=== PATIENT | female | born 1975 | race Caucasian/White ===

== ENCOUNTER 2021-05-08 19:33 | Emergency (ER) | payer BC, OTHER ==
[~2021-05-08] VITALS: Ht 162.6 cm; Wt 104.5 kg
--- NOTE | 2021-05-08 19:55 | PHYS DOC ---
General Adult EDM: Chief Complaint: SHORTNESS OF BREATH HPI: HPI: Patient is a 45-year-old female who presents to the emergency department for shortness of breath, chest tightness with coughing, fevers, sore irritated throat and a non-productive cough. Patient is Covid positive and was diagnosed 6 days ago. She also has a history of asthma. Patient denies any nausea, vomiting (DINA ROCKWELL APRN) Review of Systems: Review of Systems: Constitutional: See HPI HENT: See HPI Respiratory: See HPI Cardiovascular: See HPI GI: See HPI (DINA ROCKWELL APRN) Current Medications: Current Meds: Current Medications Medications (Trade) Dose Ordered Sig/Suresh Start Time Stop Time Status Last Admin Dose Admin Albuterol/ Ipratropium (Duoneb) 3 ml 1X ONCE 05/08/21 20:00 05/08/21 20:01 UNV Dexamethasone Sodium Phosphate (Decadron) 10 mg 1X ONCE 05/08/21 20:00 05/08/21 20:01 UNV Sodium Chloride 1,000 ml @ 1,000 mls/hr 1X ONCE 05/08/21 20:00 05/08/21 20:59 UNV (DINA ROCKWELL APRN) Physical Exam: PE: Constitutional: Well developed, well nourished, no acute distress, non-toxic appearance. [] HENT: Normocephalic, atraumatic, bilateral external ears normal, oropharynx moist, no oral exudates, nose normal. [] Eyes: PERRL, EOMI, conjunctiva normal, no discharge. [] Neck: Normal range of motion, no stridor Cardiovascular:Heart rate regular rhythm, no murmur [] Lungs & Thorax: Bilateral breath sounds clear in upper lobes, diminished lower lobes with crackles on l lower lobe Abdomen: Bowel sounds normal, soft, no tenderness, no masses, no pulsatile masses. [] Skin: Warm, dry, no erythema, no rash. [] Back: Normal ROM Extremities: No tenderness, no cyanosis, no clubbing, ROM intact, no edema. [] Neurologic: Alert and oriented X 3, normal motor function, normal sensory function, no focal deficits noted. [] Psychologic: Affect normal, judgement normal, mood normal. [] (DINA ROCKWELL APRN) Current Patient Data: Labs: Laboratory Tests Test 11/28/21 20:15 White Blood Count 4.0 x10^3/uL Red Blood Count 3.78 x10^6/uL Hemoglobin 12.2 g/dL Hematocrit 35.4 % Mean Corpuscular Volume 93 fL Mean Corpuscular Hemoglobin 32 pg Mean Corpuscular Hemoglobin Concent 34 g/dL Red Cell Distribution Width 13.3 % Platelet Count 84 x10^3/uL Neutrophils (%) (Auto) 75 % Lymphocytes (%) (Auto) 17 % Monocytes (%) (Auto) 7 % Eosinophils (%) (Auto) 0 % Basophils (%) (Auto) 0 % Neutrophils # (Auto) 3.0 x10^3uL Lymphocytes # (Auto) 0.7 x10^3/uL Monocytes # (Auto) 0.3 x10^3/uL Eosinophils # (Auto) 0.0 x10^3/uL Basophils # (Auto) 0.0 x10^3/uL Sodium Level 138 mmol/L Potassium Level 4.0 mmol/L Chloride Level 101 mmol/L Carbon Dioxide Level 25 mmol/L Anion Gap 12 Blood Urea Nitrogen 9 mg/dL Creatinine 0.9 mg/dL Estimated GFR (Cockcroft-Gault) 67.7 BUN/Creatinine Ratio 10 Glucose Level 116 mg/dL Calcium Level 8.2 mg/dL Total Bilirubin 0.3 mg/dL Aspartate Amino Transf (AST/SGOT) 33 U/L Alanine Aminotransferase (ALT/SGPT) 28 U/L Alkaline Phosphatase 70 U/L Troponin I High Sensitivity 20 ng/L Total Protein 6.3 g/dL Albumin 3.3 g/dL Albumin/Globulin Ratio 1.1 Current Medications Medications (Trade) Dose Ordered Sig/Suresh Route PRN Reason Start Time Stop Time Status Last Admin Dose Admin Sodium Chloride 1,000 ml @ 1,000 mls/hr 1X ONCE IV 05/08/21 20:30 05/08/21 21:29 05/08/21 20:20 Albuterol/ Ipratropium (Duoneb) 3 ml 1X ONCE NEB 05/08/21 20:30 05/08/21 20:31 DC 05/08/21 20:40 Dexamethasone Sodium Phosphate (Decadron) 10 mg 1X ONCE IVP 05/08/21 20:00 05/08/21 19:51 DC Acetaminophen (Tylenol) 1,000 mg 1X ONCE PO 05/08/21 20:30 05/08/21 20:31 DC 05/08/21 20:23 Dexamethasone Sodium Phosphate (Decadron) 10 mg STK-MED ONCE .ROUTE 05/08/21 20:09 05/08/21 20:09 DC (DINA ROCKWELL APRN) EKG: EKG: EKG performed by ER staff at 2057 shows sinus tachycardia with a heart rate of 129, QTC of 421, no STEMI read by Dr. Atkins. [] (DINA ROCKWELL APRN) Radiology/Procedures: Radiology/Procedures: []PROCEDURE: PORTABLE CHEST 1V XR CHEST 1V 05/08/2021 8:00 PM INDICATION: Cough, Covid positive COMPARISON: None available TECHNIQUE: Portable frontal view of the chest is provided. FINDINGS: The cardiomediastinal silhouette is within normal limits. Multifocal patchy predominantly nodular airspace disease identified throughout the lungs. There are no significant pleural effusions. There is no pulmonary vascular congestion. No pneumothorax. No suspicious osseous abnormality. IMPRESSION: Multifocal nodular opacities throughout the lungs favor multifocal pneumonia of infectious/inflammatory etiology. Recommend follow-up to resolution given nodular appearance of airspace disease to assess for underlying neoplastic process. Electronically signed by: Jean Aponte MD (05/08/2021 8:34 PM) [facility] DICTATED AND SIGNED BY: JEAN APONTE MD DATE: 05/08/212032 CC: EMERGENCY,DEPARTMENT; DINA ROCKWELL APRN; MARA WILBURN ~MTH0 0 TECHNIQUE: Sequential axial images through the chest obtained without IV contrast. Sagittal and coronal reformatted images were reconstructed from the axial data and reviewed. Exposure: One or more of the following in the visualized dose reduction techniques were utilized for this examination: 1. Automated exposure control 2. Adjustment of the MA and/or KV according to patient size 3. Use of iterative of reconstructive technique Comparisons: Chest x-ray same day FINDINGS: Visualized portions of the thyroid are unremarkable. Prominent mildly enlarged prevascular and pretracheal lymph nodes are noted. Heart size is normal. No pericardial effusion. Thoracic aorta has normal course and caliber. Pulmonary artery is not Airways are patent. Patchy areas of ground glass opacity and consolidation noted in the lungs bilaterally. No pneumothorax. No suspicious lung nodules are identified. No pleural effusion or thickening. Visualized upper abdomen is unremarkable. No suspicious osseous lesions or acute fractures. IMPRESSION: Extensive patchy lungs bilaterally favored to be infectious or inflammatory in etiology. Correlate for atypical/viral infections such as Covid. Electronically signed by: Deedee Cordova MD (05/08/2021 9:48 PM) [facility] DICTATED AND SIGNED BY: DEEDEE CORDOVA MD DATE: 05/08/212139 CC: SARAH ATKINS MD; DINA ROCKWELL APRN; MARA WILBURN ~MTH0 0 (DINA ROCKWELL APRN) Heart Score: C/O Chest Pain: No HEART Score for Chest Pain: HEART Score for Chest Pain Response (Comments) Value History Slighlty/Non-Suspicious 0 ECG Normal 0 Age < 45 0 Risk Factors 1 or 2 Risk Factors 1 Troponin < Normal Limit 0 Total 1 Risk Factors: Risk Factors: DM, Current or recent (<one month) smoker, HTN, HLP, family history of CAD, obesity. Risk Scores: Score 0 - 3: 2.5% MACE over next 6 weeks - Discharge Home Score 4 - 6: 20.3% MACE over next 6 weeks - Admit for Clinical Observation Score 7 - 10: 72.7% MACE over next 6 weeks - Early Invasive Strategies (DINA ROCKWELL APRN) Course & Med Decision Making: Course & Med Decision Making Pertinent Labs and Imaging studies reviewed. (See chart for details) [] Patient presents to the emergency department today for shortness of breath, fevers, chest tightness when coughing. Patient is noted to be tachycardic in the ER today with a heart rate of 120. She is not hypoxic and her O2 saturation is 94% at rest. Patient is currently febrile in the emergency department. Work-up in the ER consisted of blood work, chest x-ray, EKG. Patient was treated with IV fluids and Tylenol and Ibuprofen for her fever. Fever has improved following treatment. Patient was also given a DuoNeb treatment and steroid. CXR shows mulitfocal PNA. Patient will be treated with antibiotic, given IV dose of Rocephin in ER. Given incentive spirometer and education. Will be discharged with cough medication and inhaler. Vital signs continue to be stable and patient's heart rate has improved but she is tachycardic, patient given another liter of normal saline. Questionable findings of possible malignancy on CXR read therefore, a CT chest was performed that showed an atypical pneumonia. I discussed patients case and findings with supervising physician and he will assume patient care at this time due to shift change. 2153. (DINA ROCKWELL APRN) Course & Med Decision Making Agree with REVIEW CONSULTANT's work-up and disposition per note. (SARAH ATKINS MD) Dragon Disclaimer: Dragon Disclaimer: This electronic medical record was generated, in whole or in part, using a voice recognition dictation system. (DINA ROCKWELL APRN) Departure Departure: Impression: Primary Impression: Pneumonia due to COVID-19 virus Disposition: HOME / SELF CARE / HOMELESS Condition: STABLE Referrals: MARA WILBURN (PCP) Patient Instructions: Cough, Adult Additional Instructions: You were seen in the emergency department for shortness of breath, fevers, cough. Your blood work was unremarkable. Your chest x-ray did show a pneumonia and this will be treated with an antibiotic. Please start and finish the antibiotic completely. You are also being discharged home with an albuterol inhaler that you can use as needed for shortness of breath or wheezing. Continue taking vwio-yhv-bwsjsou cough medications, I would recommend Delsym kjat-vce-[id number]. For your fevers you can take Tylenol and ibuprofen. Increase your fluids and rest. I would advise you to purchase a pulse oximeter so that you can monitor your heart rate and your oxygen saturations at home. Please return to the emergency department if your oxygen saturation goes below 90%. Follow-up with your primary care provider tomorrow regarding your ER visit. Re turn to the emergency department if you develop worsening of your shortness of breath, chest pain, high fevers refractory to treatment, intractable nausea or vomiting or any new or worsening concerns. Scripts Albuterol Sulfate (PROAIR HFA INHALER) 8.5 Gm Hfa.aer.ad 2 PUFF IH PRN Q4-6HRS PRN for wheezing for 21 Days, #1 INHALER 0 Refills as needed for wheezing Prov: DINA ROCKWELL APRN 05/08/21 Azithromycin (ZITHROMAX) 250 Mg Tablet 1 PKG PO UD for pneumonia, #1 PKG 0 Refills Prov: DINA ROCKWELL APRN 05/08/21 DINA ROCKWELL APRN May 08, 2021 19:55 SARAH ATKINS MD May 09, 2021 00:25
[2021-05-08] MEDS ORDERED: DEXAMETHASONE SOD PHOS 10 MG/ML VIAL. IVP ONE ×3 (20:00→21:15)
[2021-05-08] MEDS ORDERED: DEXAMETHASONE SOD PHOS 10 MG/ML VIAL. ONE (20:09)
[2021-05-08] MEDS ORDERED: IPRATRPIUM/ALBUTEROL 0.5/2.5MG 3 ML NEBU. NEB ONE (20:30)
[2021-05-08] MEDS ORDERED: IV NORMAL SALINE 1,000ML 1,000 ML IV ONE ×2 (20:30→21:15)
[2021-05-08] MEDS ORDERED: ACETAMINOPHEN 500 MG TABLET PO ONE (20:30)
[2021-05-08 20:37] LABS: BASO % 0 % (0-3); EOS % 0 % (0-3); HEMATOCRIT 35.4 % (36.0-47.0); HEMOGLOBIN 12.2 g/dL (12.0-15.5); LYMPH # 0.7 x10^3/uL (1.0-4.8); LYMPH % 17 % (24-48); MEAN CORPUSCULAR HEMOGLOBIN 32 pg (25-35); MEAN CORPUSCULAR HGB CONC 34 g/dL (31-37); MEAN CORPUSCULAR VOLUME 93 fL (79-100); MONO # 0.3 x10^3/uL (0.0-1.1); MONO % 7 % (0-9); NEUT % 75 % (31-73); PLATELET COUNT 84 x10^3/uL (140-400); RED BLOOD COUNT 3.78 x10^6/uL (3.50-5.40); RED CELL DISTRIBUTION WIDTH 13.3 % (11.5-14.5)
--- NOTE | 2021-05-08 20:37 | RAD ---
XR CHEST 1V 05/08/2021 8:00 PM INDICATION: Cough, Covid positive COMPARISON: None available TECHNIQUE: Portable frontal view of the chest is provided. FINDINGS: The cardiomediastinal silhouette is within normal limits. Multifocal patchy predominantly nodular air space disease identified throughout the lungs. There are no significant pleural effusions. There is no pulmonary vascular congestion. No pneumothora x. No suspicious osseous abnormality. IMPRESSION: Multifocal nodular opacities throughout the lungs favor multifocal pneumonia of infectious/inflammato ry etiology. Recommend follow-up to resolution given nodular appearance of airspace disease to assess for underlying neoplastic process. Electronically signed by: Linda Torres MD (05/08/2021 8:34 PM) [facility]
[2021-05-08 20:39] LABS: CALCIUM 8.2 mg/dL (8.5-10.1); CREATININE 0.9 mg/dL (0.6-1.0); GFR 67.7
[2021-05-08 20:45] LABS: ALBUMIN 3.3 g/dL (3.4-5.0); ALBUMIN/GLOBULIN RATIO 1.1 (1.0-1.7); TOTAL BILIRUBIN 0.3 mg/dL (0.2-1.0); TOTAL PROTEIN 6.3 g/dL (6.4-8.2)
[2021-05-08] MEDS ORDERED: ALBU2.5V8 IH (21:10)
[2021-05-08] MEDS ORDERED: AZIT250T PO (21:10)
[2021-05-08] MEDS ORDERED: IBUPROFEN 600 MG TABLET. PO ONE (21:15)
[2021-05-08] MEDS ORDERED: IV NORMAL SALINE 50ML 50 ML ONE (21:44)
[2021-05-08] MEDS ORDERED: cefTRIAXone SODIUM 1 GM VIAL ONE (21:44)
--- NOTE | 2021-05-08 21:50 | RAD ---
Exam: CT chest without contrast INDICATION: Short of air TECHNIQUE: Sequential axial images through the chest obtained without IV contrast. Sagittal and coron al reformatted images were reconstructed from the axial data and reviewed. Exposure: One or more of the following in the visualized dose reduction techniques were utilized for this examination: 1. Automated exposure control 2. Adjustment of the MA and/or KV according to patient size 3. Use of iterative of reconstructive technique Comparisons: Chest x-ray same day FINDINGS: Visualized portions of the thyroid are unremarkable. Prominent mildly enlarged prevascular and pretra cheal lymph nodes are noted. Heart size is normal. No pericardial effusion. Thoracic aorta has normal course and caliber. Pulmonar y artery is not Airways are patent. Patchy areas of ground glass opacity and consolidation noted in the lungs bilater ally. No pneumothorax. No suspicious lung nodules are identified. No pleural effusion or thickening. Visualized upper abdomen is unremarkable. No suspicious osseous lesions or acute fractures. IMPRESSION: Extensive patchy lungs bilaterally favored to be infectious or inflammatory in etiology. Correlate fo r atypical/viral infections such as Covid. Electronically signed by: Deedee Cornelius MD (05/08/2021 9:48 PM) [facility]
--- NOTE | 2021-05-08 22:49 | EKG ---
[address] [address] Test Date: 2021-05-08 Test Time: 20:58:50 Pat Name: SY BELTRAN Department: Room: Gender: F [employer]: : 1975 Requested By: DINA ROCKWELL Order Number: [id number] Reading MD: Gennaro Devi Measurements Intervals [place] Rate: 129 P: -32 PA: 140 QRS: -12 QRSD: 78 T: 16 QT: 286 QTc: 421 Interpretive Statements SINUS TACHYCARDIA LEFTWARD AXIS Electronically Signed On 05-09-2021 9:27:24 FUR DRUMMER by Gennaro Devi
[2021-05-09] MEDS ORDERED: START PACK - traMADol 1 STARTPACK TABLET PO ONE ×2 (00:01→00:15)
[2021-05-09 00:15] VITALS: BP 129/71
== END 2021-05-09 00:15 | disposition home or self-care (01) ==
LOC: ER 19:33
DX: U07.1 COVID-19 (principal); J12.82 Pneumonia due to coronavirus disease 2019
CPT/HCPCS: 36415; 71045; 71250; 80053; 84484; 85025; 87040; 93005; 94640; 96361; 96365; 96375; 99285; J0696; J1100; J7030; 87205

== ENCOUNTER 2021-05-10 10:00 | Emergency (ER) | payer BC ==
[~2021-05-10] VITALS: Ht 162.6 cm; Wt 104.5 kg
[~2021-05-10 10:00] MED LIST: ALBU2.5V8 IH; AZIT250T PO
[2021-05-10] MEDS ORDERED: ACETAMINOPHEN 500 MG TABLET PO ONE (10:15)
[2021-05-10] MEDS ORDERED: IV NORMAL SALINE 1,000ML 1,000 ML IV ONE ×2 (10:15→12:15)
--- NOTE | 2021-05-10 10:22 | PHYS DOC ---
Past History Past Medical History: Asthma Past Surgical History: , Tonsillectomy, Other Additional Past Surgical Histo: breast reduction,liver biopsy, shoulder Adult General Chief Complaint Chief Complaint: SHORTNESS OF BREATH HPI HPI Patient is a 45-year-old female presenting via POV for shortness of breath. This is an acute on chronic issue. She has history of asthma but is currently infected with COVID-19. She was diagnosed with COVID-19 7 days ago and is currently on day 8 of symptoms. She was seen at our facility approximately 48 hours ago and had comprehensive evaluation, she was ultimately discharged home with Zithromax antibiotic and given x1 dose of dexamethasone. Nonetheless, patient noted that since ER departure, she was initially feeling better but in the past 24 hours her shortness of breath and overall fatigue is worsened. She states she cannot take a full breath, has had minimal p.o. intake and overall feels poorly prompting her to come in to ER today for evaluation. States only medication she takes in outpatient setting is albuterol, she has been using this at increased frequency since being infected with COVID-19 without significant relief in symptoms. She does admit she is vaccinated against COVID-19 with [employer] Hel[employer] vaccine. She has no other significant health history such as cardiac issues, pulmonary issues or history of blood clots or known coagulopathies Review of Systems Review of Systems Fourteen body systems of review of systems have been reviewed. See HPI for pertinent positives and negative responses, other carballo all other systems are negative, non-pertinent or non-contributory Current Medications Current Medications Current Medications Medications (Trade) Dose Ordered Sig/Suresh Start Time Stop Time Status Last Admin Dose Admin Acetaminophen (Tylenol) 1,000 mg 1X ONCE 05/10/21 10:15 05/10/21 10:16 UNV Sodium Chloride 1,000 ml @ 1,000 mls/hr 1X ONCE 05/10/21 10:15 05/10/21 11:14 UNV Allergies Allergies Allergies Coded Allergies Type Severity Reaction Last Updated Verified codeine Allergy Intermediate 05/08/21 Yes morphine Allergy Intermediate 05/08/21 Yes Physical Exam Physical Exam Constitutional: Appears older than stated age, appears tired and sick HENT: Normocephalic, atraumatic, bilateral external ears normal, oropharynx moist, no oral exudates, nose normal. Eyes: PERRLA, EOMI, conjunctiva normal, no discharge. Neck: Normal range of motion, no tenderness, supple, no stridor. Cardiovascular: Heart rate tachycardic, sinus rhythm, no murmurs rubs or gallops Lungs & Thorax: Hypoxic on room air on evaluation, increased work of breathing with accessory muscle use noted in neck, patient has significant rhonchi present bilaterally Abdomen: Bowel sounds normal, soft, no tenderness, no masses, no pulsatile masses. Nonsurgical abdomen, no peritoneal signs Skin: Warm, clammy, no erythema, no rash. Back: No tenderness, no CVA tenderness. Extremities: No tenderness, no cyanosis, no clubbing, ROM intact, no edema. Neurologic: Alert and oriented X 3, grossly normal motor & sensory function, no focal deficits noted. Psychologic: Affect normal, judgement normal, mood normal. Current Patient Data Vital Signs Vital Signs Date Time Temp Pulse Resp B/P (MAP) Pulse Ox O2 Delivery O2 Flow Rate FiO2 05/10/21 10:07 103.2 123 20 166/95 (118) 89 Nasal Cannula 5.0 Lab Results Laboratory Tests Test 05/10/21 10:24 White Blood Count 7.7 x10^3/uL Red Blood Count 3.69 x10^6/uL Hemoglobin 11.8 g/dL Hematocrit 34.6 % Mean Corpuscular Volume 94 fL Mean Corpuscular Hemoglobin 32 pg Mean Corpuscular Hemoglobin Concent 34 g/dL Red Cell Distribution Width 13.8 % Platelet Count 130 x10^3/uL Neutrophils (%) (Auto) 88 % Lymphocytes (%) (Auto) 9 % Monocytes (%) (Auto) 3 % Eosinophils (%) (Auto) 0 % Basophils (%) (Auto) 0 % Neutrophils # (Auto) 6.8 x10^3uL Lymphocytes # (Auto) 0.7 x10^3/uL Monocytes # (Auto) 0.2 x10^3/uL Eosinophils # (Auto) 0.0 x10^3/uL Basophils # (Auto) 0.0 x10^3/uL Prothrombin Time 9.6 SEC Prothromb Time International Ratio 0.9 Activated Partial Thromboplast Time 26 SEC Bedside Venous pH 7.33 Bedside Venous pCO2 46 mmHg Bedside Venous pO2 35 mmHg Venous Blood HCO3 23 mmol/L POC Venous O2 Saturation (Terrance) 53 % Bedside FiO2 40 Sodium Level 132 mmol/L Potassium Level 3.8 mmol/L Chloride Level 97 mmol/L Carbon Dioxide Level 24 mmol/L Anion Gap 11 Blood Urea Nitrogen 8 mg/dL Creatinine 0.9 mg/dL Estimated GFR (Cockcroft-Gault) 67.7 BUN/Creatinine Ratio 9 Glucose Level 105 mg/dL Lactic Acid Level 2.8 mmol/L Calcium Level 7.8 mg/dL Total Bilirubin 0.3 mg/dL Aspartate Amino Transf (AST/SGOT) 54 U/L Alanine Aminotransferase (ALT/SGPT) 31 U/L Alkaline Phosphatase 72 U/L Troponin I High Sensitivity 20 ng/L Total Protein 6.1 g/dL Albumin 3.1 g/dL Albumin/Globulin Ratio 1.0 Current Medications Medications (Trade) Dose Ordered Sig/Suresh Route PRN Reason Start Time Stop Time Status Last Admin Dose Admin Acetaminophen (Tylenol) 1,000 mg 1X ONCE PO 05/10/21 10:15 05/10/21 10:20 DC 05/10/21 10:41 Sodium Chloride 1,000 ml @ 1,000 mls/hr 1X ONCE IV 05/10/21 10:15 05/10/21 11:14 DC 05/10/21 10:39 Ceftriaxone Sodium 1 gm/ Sodium Chloride 50 ml @ 100 mls/hr 1X ONCE IV 05/10/21 10:30 05/10/21 10:59 DC 05/10/21 10:40 Azithromycin 250 mg/Sodium Chloride 250 ml @ 250 mls/hr 1X ONCE IV 05/10/21 10:30 05/10/21 11:29 DC 05/10/21 10:40 Dexamethasone Sodium Phosphate (Decadron) 6 mg 1X ONCE IVP 05/10/21 10:30 05/10/21 10:31 DC 05/10/21 10:41 Iohexol (Omnipaque 350 Mg/ml) 100 ml 1X ONCE IV 05/10/21 10:30 05/10/21 10:55 DC Sodium Chloride 250 ml @ As Directed STK-MED ONCE .ROUTE 05/10/21 10:35 05/10/21 10:35 DC Sodium Chloride 50 ml @ As Directed STK-MED ONCE .ROUTE 05/10/21 10:35 05/10/21 10:35 DC Azithromycin (Zithromax) 500 mg STK-MED ONCE IV 05/10/21 10:35 05/10/21 10:36 DC Ceftriaxone Sodium (Rocephin) 1 gm STK-MED ONCE .ROUTE 05/10/21 10:35 05/10/21 10:36 DC Sodium Chloride 250 ml @ As Directed STK-MED ONCE .ROUTE 05/10/21 10:37 05/10/21 10:37 DC Enoxaparin Sodium (Lovenox 120mg Syringe) 105 mg 1X ONCE SQ 05/10/21 10:45 05/10/21 10:55 DC 05/10/21 11:22 Albuterol Sulfate (Ventolin) 2.5 mg STK-MED ONCE .ROUTE 05/10/21 10:53 05/10/21 10:53 DC Budesonide (Pulmicort) 0.5 mg STK-MED ONCE .ROUTE 05/10/21 10:53 05/10/21 10:53 DC Sodium Chloride 1,000 ml @ 1,000 mls/hr 1X ONCE IV 05/10/21 12:15 05/10/21 13:14 DC EKG EKG EKG ordered and interpreted by myself at 1034 hrs. as sinus tachycardia at 119 bpm, unremarkable intervals, left axis deviation, no obvious ischemic findings, no STEMI Radiology/Procedures Radiology/Procedures EXAMINATION: CTA CHEST CLINICAL HISTORY: Shortness of breath, covid 19 Technique: Spiral CT acquisition of the chest from the thoracic inlet to the upper abdomen following IV contrast with coronal and sagittal reformatted images also provided for review. 3D maximum intensity projection images also performed. CT Dose Reduction Employed: One or more of the following individualized dose reduction techniques were utilized for this examination: 1. Automated exposure control 2. Adjustment of the mA and/or kV according to patient size 3. Use of iterative reconstruction technique. COMPARISON: Chest radiograph same day FINDINGS: Limitations: Suboptimal study despite repeat attempt at scanning due to respiratory motion and non-ideal pulmonary arterial enhancement likely related to poor bolus tracking of contrast injection. Pulmonary Vasculature: No evidence of main or definite lobar pulmonary arterial thrombus. Lung Parenchyma, Pleura, and Airways: Bilateral multifocal patchy opacities and groundglass throughout the bilateral lungs. No pleural effusion. Central airways patent. Lower Neck, Lymph Nodes, and Mediastinum: Visualized thyroid gland within normal limits. Multiple prominent mediastinal lymph nodes, likely reactive. Heart, Pericardium, and Thoracic Vessels: Cardiac chambers normal in size. No pericardial effusion. Thoracic aorta within normal limits. No coronary artery atherosclerotic calcifications are noted, although the study is not optimized for coronary assessment. Bones and Soft Tissues: Multilevel degenerative changes of the thoracic spine. Upper Abdomen: Diffuse hypoattenuation of the hepatic parenchyma, compatible with steatosis. IMPRESSION: No evidence of main or definite lobar pulmonary embolism on limited evaluation as described. Bilateral multifocal patchy airspace disease, compatible with viral pneumonia given reported history. Electronically signed by: Pierre Muller DO (05/10/2021 12:03 PM) [id number] ///////////////////////////////// INDICATION: Reason: shob / Spl. Instructions: / History: COMPARISON: May 08, 2021 FINDINGS: Single view of chest obtained. Increasing bilateral pulmonic infiltrates. Cardiomediastinal silhouette is mildly prominent but likely exaggerated by portable technique. Similar to prior. IMPRESSION: * Increasing bilateral pulmonic infiltrates. Again this could be infectious in nature including from worsening viral pneumonia. Superimposed bacterial pneumonia not excluded. Electronically signed by: Norm Cadet MD (05/10/2021 11:14 AM) [id number] Heart Score C/O Chest Pain: No HEART Score for Chest Pain: HEART Score for Chest Pain Response (Comments) Value History Slighlty/Non-Suspicious 0 ECG Normal 0 Age < 45 0 Risk Factors 1 or 2 Risk Factors 1 Troponin < Normal Limit 0 Total 1 Risk Factors: Risk Factors: DM, Current or recent (<one month) smoker, HTN, HLP, family history of CAD, obesity. Risk Scores: Risk Factors: DM, Current or recent (<one month) smoker, HTN, HLP, family history of CAD, obesity. Course & Med Decision Making Course & Med Decision Making Airway patent, breathing labored, IV access and vitals obtained concerning for fever, tachypnea, and tachycardia Patient immediately placed on supplemental oxygen via nasal cannula without significant relief and hypoxia and so she was escalated to nonrebreather with transient improvement in symptoms HPI and physical exam obtained, subsequent ER work-up ordered 1 g Tylenol, 10 mg IV Decadron, weight-based Lovenox, Rocephin and azithromycin, and breathing treatments administered without significant relief in symptoms. BiPAP trial eventually tried with improvement in symptoms I reviewed entirety of ER work-up with patient bedside and need for hospital transfer for higher acuity of care such as pulmonology services. I contacted [facility] hospitalist and patient was excepted for transfer under care of Dr. Sanchez I updated patient on proposed plan of care that included hospital transfer to [facility] for which she was amenable. All questions and concerns addressed prior to ER transfer Critical Care Time This patient required critical care. Due to the fact that the patient required a significant amount of one on one physician - patient contact time, ordering and review of studies, arranging urgent treatment with development of a management plan, evaluation of patients response to treatment with frequent reassessments, and discussions with other providers this patient required 30 minutes of critical care time. Critical care time was indicated due to the inherent instability and/or potential for instability in this patient. The critical care time that is allocated to this patient is above and beyond any time spent on any other billable procedures performed on this patient. Dragon Disclaimer Dragon Disclaimer This electronic medical record was generated, in whole or in part, using a voice recognition dictation system. Departure Departure: Impression: Primary Impression: Pneumonia due to COVID-19 virus Additional Impression: Respiratory failure with hypoxia Disposition: 02 [facility] ([facility]) Admitting Physician: Other (dr sanchez) Condition: STABLE Referrals: MARA WILBURN (PCP) Problem Qualifiers MARCO CARPENTER DO May 10, 2021 10:22
[2021-05-10] MEDS ORDERED: IOHEXOL 350 MG/ML 100 ML VIAL. IV ONE (10:30)
[2021-05-10] MEDS ORDERED: DEXAMETHASONE SOD PHOS 4 MG/ML VIAL. IVP ONE (10:30)
[2021-05-10] MEDS ORDERED: AZITHROMYCIN 250 MG in IV NORMAL SALINE 250ML 250 ML IV ONE (10:30)
[2021-05-10] MEDS ORDERED: IV NORMAL SALINE 250ML 250 ML ONE ×2 (10:35→10:37)
[2021-05-10] MEDS ORDERED: cefTRIAXone SODIUM 1 GM VIAL ONE (10:35)
[2021-05-10] MEDS ORDERED: IV NORMAL SALINE 50ML 50 ML ONE (10:35)
[2021-05-10] MEDS ORDERED: AZITHROMYCIN 500 MG VIAL. IV ONE (10:35)
[2021-05-10 10:45] LABS: BASO % 0 % (0-3); EOS % 0 % (0-3); HEMATOCRIT 34.6 % (36.0-47.0); HEMOGLOBIN 11.8 g/dL (12.0-15.5); LYMPH # 0.7 x10^3/uL (1.0-4.8); LYMPH % 9 % (24-48); MEAN CORPUSCULAR HEMOGLOBIN 32 pg (25-35); MEAN CORPUSCULAR HGB CONC 34 g/dL (31-37); MEAN CORPUSCULAR VOLUME 94 fL (79-100); MONO # 0.2 x10^3/uL (0.0-1.1); MONO % 3 % (0-9); NEUT # 6.8 x10^3uL (1.8-7.7); NEUT % 88 % (31-73); PLATELET COUNT 130 x10^3/uL (140-400); RED BLOOD COUNT 3.69 x10^6/uL (3.50-5.40); RED CELL DISTRIBUTION WIDTH 13.8 % (11.5-14.5); WHITE BLOOD COUNT 7.7 x10^3/uL (4.0-11.0)
[2021-05-10] MEDS ORDERED: ENOXAPARIN ** NOTE DOSE ** SYRINGE SQ ONE (10:45)
[2021-05-10] MEDS ORDERED: ALBUTEROL SULFATE 2.5 MG/3 ML NEBU. ONE (10:53)
[2021-05-10] MEDS ORDERED: BUDESONIDE 0.5 MG/2 ML NEBU ONE (10:53)
[2021-05-10 11:00] LABS: ALBUMIN 3.1 g/dL (3.4-5.0); CALCIUM 7.8 mg/dL (8.5-10.1); CREATININE 0.9 mg/dL (0.6-1.0); GFR 67.7; POTASSIUM 3.8 mmol/L (3.5-5.1); TOTAL BILIRUBIN 0.3 mg/dL (0.2-1.0); TOTAL PROTEIN 6.1 g/dL (6.4-8.2)
--- NOTE | 2021-05-10 11:16 | RAD ---
INDICATION: Reason: shob / Spl. Instructions: / History: COMPARISON: May 08, 2021 FINDINGS: Single view of chest obtained. Increasing bilateral pulmonic infiltrates. Cardiomediastinal silhouette is mildly prominent but likely exaggerated by portable technique. Simila r to prior. IMPRESSION: * Increasing bilateral pulmonic infiltrates. Again this could be infectious in nature including from worsening viral pneumonia. Superimposed bacterial pneumonia not excluded. Electronically signed by: Norm Cadet MD (05/10/2021 11:14 AM) [id number]
--- NOTE | 2021-05-10 12:05 | RAD ---
EXAMINATION: CTA CHEST CLINICAL HISTORY: Shortness of breath, covid 19 Technique: Spiral CT acquisition of the chest from the thoracic inlet to the upper abdomen following IV contrast with coronal and sagittal reformatted images also provided for review. 3D maximum intensi ty projection images also performed. CT Dose Reduction Employed: One or more of the following individualized dose reduction techniques wer e utilized for this examination: 1. Automated exposure control 2. Adjustment of the mA and/or kV ac cording to patient size 3. Use of iterative reconstruction technique. COMPARISON: Chest radiograph same day FINDINGS: Limitations: Suboptimal study despite repeat attempt at scanning due to respiratory motion and non-id eal pulmonary arterial enhancement likely related to poor bolus tracking of contrast injection. Pulmonary Vasculature: No evidence of main or definite lobar pulmonary arterial thrombus. Lung Parenchyma, Pleura, and Airways: Bilateral multifocal patchy opacities and groundglass throughou t the bilateral lungs. No pleural effusion. Central airways patent. Lower Neck, Lymph Nodes, and Mediastinum: Visualized thyroid gland within normal limits. Multiple pro minent mediastinal lymph nodes, likely reactive. Heart, Pericardium, and Thoracic Vessels: Cardiac chambers normal in size. No pericardial effusion. T horacic aorta within normal limits. No coronary artery atherosclerotic calcifications are noted, alth ough the study is not optimized for coronary assessment. Bones and Soft Tissues: Multilevel degenerative changes of the thoracic spine. Upper Abdomen: Diffuse hypoattenuation of the hepatic parenchyma, compatible with steatosis. IMPRESSION: No evidence of main or definite lobar pulmonary embolism on limited evaluation as described. Bilateral multifocal patchy airspace disease, compatible with viral pneumonia given reported history. Electronically signed by: Pierre Muller DO (05/10/2021 12:03 PM) [id number]
--- NOTE | 2021-05-10 12:38 | EKG ---
[address] [address] Test Date: 2021-05-10 Test Time: 10:29:44 Pat Name: SY BELTRAN Department: Room: Gender: F Manager Functional: SEA : 1975 Requested By: MARCO CARPENTER Order Number: [id number] Reading MD: Measurements Intervals [place] Rate: 119 P: 4 DC: 150 QRS: -10 QRSD: 94 T: 24 QT: 290 QTc: 408 Interpretive Statements SINUS TACHYCARDIA LEFTWARD AXIS OTHERWISE NORMAL ECG RI6.02 No previous ECG available for comparison
[2021-05-10 18:27] VITALS: BP 120/68
== END 2021-05-10 19:12 | disposition short-term general hospital (02) ==
LOC: ER 10:00
DX: U07.1 COVID-19 (principal); J12.82 Pneumonia due to coronavirus disease 2019; J96.91 Respiratory failure, unspecified with hypoxia; J45.909 Unspecified asthma, uncomplicated; Z88.5 Allergy status to narcotic agent
CPT/HCPCS: 36415; 71045; 71275; 80053; 82803; 83605; 84484; 85025; 85610; 85730; 87040; 93005; 94660; 96361; 96365; 96368; 96372; 96375; 99291; J0456; J0696; J1100; J1650; J7030; J7050